=== PATIENT | female | born 2000 | race African-American/Black ===

== ENCOUNTER 2025-02-13 00:33 | Emergency (ER) | payer MEDICAID ==
[2025-02-13 00:57] LABS: APPEARANCE,URINE CLEAR (CLEAR); BILIRUBIN,URINE NEGATIVE (NEGATIVE); COLOR,URINE YELLOW (YELLOW); GLUCOSE,URINE NEGATIVE (NEGATIVE); KETONES,URINE NEGATIVE (NEGATIVE); LEUKOCYTE ESTERASE,URINE NEGATIVE (NEGATIVE); NITRITE,URINE NEGATIVE (NEGATIVE); OCCULT BLOOD,URINE NEGATIVE (NEGATIVE); PROTEIN,URINE NEGATIVE (NEGATIVE)
[2025-02-13] MEDS: Sodium Chloride 0.9% 1,000 ML IV ONE (01:03)
[2025-02-13 01:07] LABS: BACTERIA,URINE NOT SEEN /HPF (NOT SEEN); EPITHELIAL CELLS,URINE FEW /HPF (NOT SEEN); RBC,URINE 0-5 /HPF (0-5); WBC,URINE 0-5 /HPF (0-5)
== END 2025-02-13 01:45 | disposition home or self-care (01) ==
LOC: CC.ED 00:33
DX: R10.30 Lower abdominal pain, unspecified (principal)
CPT/HCPCS: 81001; 81025; 96360; 99283; 99284-25; J7030